=== PATIENT | female | born 1955 | race Caucasian/White ===

== ENCOUNTER 2017-11-08 19:57 | Emergency (ER) | payer MEDICARE ==
[~2017-11-08] VITALS: Ht 162.6 cm; Wt 70.8 kg
[2017-11-08 20:20] VITALS: BP 126/71
[2017-11-08] MEDS ORDERED: TRAZODONE50 MG PO (20:28)
[2017-11-08] MEDS ORDERED: OMEPRAZOLE20 MG PO (20:29)
[2017-11-08] MEDS ORDERED: GABAPENTIN100 MG PO (20:29)
[2017-11-08] MEDS ORDERED: ASPIRIN81 MG PO (20:30)
[2017-11-08] MEDS ORDERED: PRAVASTATIN20 MG PO (20:30)
[2017-11-08] MEDS ORDERED: CELEXA40 M1 PO (20:31)
[2017-11-08] MEDS ORDERED: TAMOXIFEN CITRA10 MG PO (20:32)
[2017-11-08 21:51] LABS: INFLUENZA A NONE DETECTED (NONE DETECT); INFLUENZA B NONE DETECTED (NONE DETECT)
[2017-11-09] MEDS ORDERED: AMOXICILLIN500 MG PO (02:42)
[2017-11-09] MEDS ORDERED: GENTAMICIN15 ML/BTL OS (02:42)
[2017-11-09] MEDS ORDERED: ROBITUSSIN AC10 ML PO (02:42)
== END 2017-11-09 03:08 | disposition home or self-care (01) ==
LOC: ED 19:57
PROVIDERS: Emergency Medicine
DX: J02.0 Streptococcal pharyngitis (principal); H10.9 Unspecified conjunctivitis; F17.210 Nicotine dependence, cigarettes, uncomplicated; E07.9 Disorder of thyroid, unspecified; Z85.3 Personal history of malignant neoplasm of breast; M79.1 Myalgia

== ENCOUNTER 2017-11-21 20:28 | Emergency (ER) | payer MEDICARE ==
[~2017-11-21] VITALS: Ht 162.6 cm; Wt 69.8 kg
[~2017-11-21 20:28] MED LIST: AMOXICILLIN500 MG PO; ASPIRIN81 MG PO; CELEXA40 M1 PO; GABAPENTIN100 MG PO; GENTAMICIN15 ML/BTL OS; OMEPRAZOLE20 MG PO; PRAVASTATIN20 MG PO; ROBITUSSIN AC10 ML PO; TAMOXIFEN CITRA10 MG PO; TRAZODONE50 MG PO
[2017-11-21 21:30] LABS: URINE BILIRUBIN - DIPSTICK NEGATIVE (NEGATIVE); URINE BLOOD DIPSTICK LARGE (NEGATIVE); URINE COLOR YELLOW; URINE GLUCOSE - DIPSTICK NEGATIVE (NEGATIVE); URINE KETONE TRACE mg/dL (NEGATIVE); URINE LEUK ESTERASE NEGATIVE (NEGATIVE); URINE NITRITE - DIPSTICK NEGATIVE (Negative); URINE PROTEIN - DIPSTICK NEGATIVE (NEG-TRACE); URINE SPECIFIC GRAVITY >=1.030; URINE UROBILINOGEN - DIPSTICK 0.2 E.U./dL (0.2)
[2017-11-21 21:34] LABS: URINE CLARITY HAZY
[2017-11-21 21:36] LABS: INFLUENZA A NONE DETECTED (NONE DETECT); INFLUENZA B NONE DETECTED (NONE DETECT)
[2017-11-21 21:40] LABS: URINE SQUAMOUS EPITHELIAL CELL FEW EPI/hpf (0-FEW); URINE WBC 0-2 WBC/hpf (0-5)
[2017-11-21 22:19] VITALS: BP 115/64
[2017-11-21] MEDS ORDERED: PROVENTIL HFA IN (22:44)
[2017-11-21] MEDS ORDERED: CODEINE/GUAIFEN1 SOL PO (22:44)
[2017-11-21] MEDS ORDERED: Levaquin PO (22:44)
== END 2017-11-21 23:05 | disposition home or self-care (01) ==
LOC: ED 20:28
PROVIDERS: Emergency Medicine
DX: J18.9 Pneumonia, unspecified organism (principal); R50.9 Fever, unspecified; R05 Cough; F17.210 Nicotine dependence, cigarettes, uncomplicated; Z91.19 Patient's noncompliance with other medical treatment and regimen

== ENCOUNTER 2021-04-06 09:11 | Day surgery (SDC) | payer MEDICARE ==
[~2021-04-06 09:11] MED LIST changes: +CITALOPRAM40 M1 PO; +CODEINE/GUAIFEN1 SOL PO; +ESTRACE VAG0.1 MG/GM VA; +LEVOTHYROXIN75 MCG PO; +Levaquin PO; +PROVENTIL HFA IN
[2021-04-06 11:00] VITALS: BP 130/63
== END 2021-04-06 11:15 | disposition home or self-care (01) ==
LOC: ENDO 09:11
PROVIDERS: ATTEND Surgery
PROC: 0DBF8ZX Excision of Right Large Intestine, Via Natural or Artificial Opening Endoscopic, Diagnostic (ICD-10-PCS; principal; 2021-04-06)
DX: Z12.11 Encounter for screening for malignant neoplasm of colon (principal); D12.2 Benign neoplasm of ascending colon; K57.30 Diverticulosis of large intestine without perforation or abscess without bleeding; K64.8 Other hemorrhoids; Z85.3 Personal history of malignant neoplasm of breast